=== PATIENT | male | born 1945 | race Caucasian/White ===

== ENCOUNTER → 2021-02-25 10:49 | Outpatient (CLI) | payer MEDICARE, MEDICAID, SELFPAY ==
--- NOTE | ~2021-02-25 | XR_ITS ---
XR thoracic spine 2V DATE: 02/25/2021 11:22 INDICATION: Thoracic back pain TECHNIQUE: AP, lateral, swimmer views COMPARISON: 02/03/2017 thoracic spine FINDINGS: There is diffuse osteopenia. There is chronic mild loss of height and anterior wedging of T3. No recent fracture or bone destruction is evident. There is degenerative spurring of the thoracic spi ne. The thoracic pedicles appear intact. No paraspinal soft tissue thickening. Status post sternotomy. Left-sided pacemaker device with leads overlying right atrium and right ventr icle. Aortic arch and descending thoracic aortic calcification. IMPRESSION: Diffuse osteopenia No recent fracture or bone destruction Degenerative spurring of the thoracic spine Reviewed, dictated and finalized at location B.
--- NOTE | ~2021-02-25 | XR_ITS ---
EXAMINATION: XR lumbar spine 2-3V DATE: 02/25/2021 11:22 INDICATION: Low back pain TECHNIQUE: Anteroposterior and lateral views of the lumbar spine, and cone-down lateral view of the l umbosacral junction were obtained. COMPARISON: CT, 11/11/2014 FINDINGS: There are 3 mm of stable anterolisthesis of L5 on S1. The vertebral body heights are normal . There is no fracture. The intervertebral disc spaces are maintained. A pain pump is implanted in th e anterior subcutaneous tissues on the right. The tip of the catheter ends in the central spinal mark anthony l at the level of the T11 vertebral body. The bowel gas pattern is normal. IMPRESSION: 1. Mild lumbar spondylosis without acute findings or significant interval change. Reviewed, dictated and finalized at location A. IMPRESSION: 1. Mild lumbar spondylosis without acute findings or significant interval gabriela silvestre
== END ==
PROVIDERS: Visit Provider Nurse Practitioner Family
DX: M47.896 Other spondylosis, lumbar region (principal); M85.88 Other specified disorders of bone density and structure, other site; M51.24 Other intervertebral disc displacement, thoracic region
CPT/HCPCS: 72070; 72100

== ENCOUNTER → 2021-02-26 10:58 | Outpatient (CLI) | payer MEDICARE, MEDICAID, SELFPAY ==
--- NOTE | ~2021-02-26 | XR_ITS ---
EXAMINATION: XR ribs LT 2V w CXR 2V INDICATION: Right-sided rib pain TECHNIQUE: PA and lateral views of the chest and 3 views of the left ribs were obtained. COMPARISON: 02/07/2017 FINDINGS: The lungs are free of acute opacities. There is no pleural effusion or pneumothorax. Cardio megaly is noted. Median sternotomy wires and mediastinal surgical clips are seen, likely from prior c oronary artery bypass grafting. A dual-lead cardiac pacemaker of the left chest wall ends with leads in expected locations. There is mild irregularity at the lateral aspects of the left fifth, sixth, an d seventh ribs. IMPRESSION: 1. Mild irregularity of the lateral left fifth through seventh ribs, possible acute fractures. Recomm end correlation for tenderness at this site. Reviewed, dictated and finalized at location A. IMPRESSION: 1. Mild irregularity of the lateral left fifth through seventh ribs, possible a cute fractures. Recommend correlation for tenderness at this site.
== END ==
PROVIDERS: Visit Provider Nurse Practitioner Family
DX: R07.81 Pleurodynia (principal)
CPT/HCPCS: 71046; 71100

== ENCOUNTER → 2022-05-28 08:24 | Outpatient (CLI) | payer MEDICARE, MEDICAID, SELFPAY ==
--- NOTE | ~2022-05-28 | XR_ITS ---
EXAMINATION: XR ribs LT 2V DATE: 05/28/2022 08:53 INDICATION: Left rib pain TECHNIQUE: 3 views of the left ribs were obtained. COMPARISON: Chest radiograph dated 02/26/2021 FINDINGS: Again seen are old healed fractures of the posterolateral left fifth-seventh ribs. No other rib fract ures identified. No focal airspace opacities, pulmonary edema, pleural effusion or pneumothorax. Mild cardiac MAG3. Coronary artery stenting. Median sternotomy wires and mediastinal surgical clips are s een, likely from prior coronary artery bypass grafting. Dual lead pacemaker seen with leads projectin g over the expected locations of the right atrium and right ventricle. Calcified mediastinal lymph no de consistent with old granulomatous disease. IMPRESSION: 1. Old left fifth-seventh rib fractures. No acute rib fractures identified. 2. Mild thyromegaly with dual-lead cardiac pacemaker and prior coronary artery stenting and bypass gr afting. Reviewed, dictated and finalized at location B. IMPRESSION: 1. Old left fifth-seventh rib fractures. No acute rib fractures identified. 2. Mild thyromegaly with dual-lead cardiac pacemaker and prior coronary artery stenting and bypass grafting.
--- NOTE | ~2022-05-28 | XR_ITS ---
EXAMINATION: XR lumbar spine 2-3V DATE: 05/28/2022 08:53 INDICATION: Low back pain. TECHNIQUE: Anteroposterior and lateral views of the lumbar spine, and cone-down lateral view of the l umbosacral junction were obtained. COMPARISON: 02/25/2021 FINDINGS: 5 mm anterolisthesis L5 on S1. Vertebral body heights are normal. Moderate disc height loss at T11-T1 2 and T12-L1 and mild disc height loss at L3-L4, L4-L5 and L5-S1. Pain pump with catheter extending c ephalad along the central canal beginning at the level of L3 and with distal tip at the level of T10- T11. Severe lower lumbar facet osteoarthritis. Atherosclerotic calcific a cyst at the abdominal aorta and common iliac arteries. IMPRESSION: 1. No significant change in mild lumbar spondylosis and 5 mm anterolisthesis L5 on S1. Reviewed, dictated and finalized at location B.
== END ==
PROVIDERS: Visit Provider Nurse Practitioner Family
DX: R07.81 Pleurodynia (principal); M47.896 Other spondylosis, lumbar region
CPT/HCPCS: 71100; 72100